=== PATIENT | male | born 1985 | race Asian ===

== ENCOUNTER 2017-08-31 10:31 | Emergency (ER) | payer MEDICAID ==
[~2017-08-31] VITALS: Ht 167.6 cm; Wt 71.4 kg
[2017-08-31 10:50] VITALS: BP 147/87
--- NOTE | 2017-08-31 10:50 | NUR ---
32 YO M BIB SELF W/ C/O COUGHING/SPITTING UP BLOOD SINCE 0800 THIS MORNING. PT REPORTS PAIN 5/10 ON THE LEFT SIDE OF HIS NECK/THROAT NEAR LYMPH NODES. NO TENDERNESS OR SWELLING PALPABLE AT THIS TIME. PT REPORTS PAIN "FEELS LIKE SOMETHING IS TORN". REPORTS HE HAS SOME CHEST PAIN THAT IS ALSO 5/10 WHEN HE COUGHS THAT HAS BEEN GOING ON FOR 2 WEEKS. REPORTS AT 0800 HE COUGHED UP "LARGE, MAROON BLOOD BLOBS". PT A&O X 4. GCS 15. CMS INTACT. PT SKIN COLOR WNL. PT DENIES N/V OR TRAUMA TO THE AREA. PT DENIES LIGHT HEADEDNESS/DIZZINESS AT THIS TIME. RESPIRATIONS EVEN AND UNLABORED. LUNG SOUNDS BILATERALLY CLEAR AT THIS TIME. ER MD SECHRIST NOTIFIED OF PT STATUS. PT NEEDS MET AT THIS TIME. WILL CONTINUE TO MONITOR.
--- NOTE | 2017-08-31 10:56 | NUR ---
PT AMBULATES TO CHAIR E
--- NOTE | 2017-08-31 12:24 | NUR ---
LAB BY BEDSIDE
[2017-08-31 12:47] LABS: BASOPHILS % (AUTO) 0.5 % (0.0-2.0); EOSINOPHILS % (AUTO) 0.5 % (0.0-4.0); HEMATOCRIT 45.9 % (36-52); HEMOGLOBIN 15.2 g/dL (12.0-18.0); LYMPHOCYTES # (AUTO) 1.9 K/uL (2.0-11.5); LYMPHOCYTES % (AUTO) 29.6 % (20.5-51.1); MEAN CORPUSCULAR HEMOGLOBIN 27 pg (27-31); MEAN CORPUSCULAR HGB CONC 33 g/dL (33-37); MONOCYTES # (AUTO) 0.6 K/uL (0.8-1.0); NEUTROPHILS # (AUTO) 3.8 K/uL (1.8-7.7); NEUTROPHILS % (AUTO) 60.4 % (42.2-75.2); PLATELET COUNT (AUTO) 271 K/uL (140-450); RED BLOOD CELL COUNT(AUTO) 5.66 MIL/uL (4.20-6.10); RED CELL DISTRIBUTION WIDTH 13.2 % (11.6-13.7); WHITE BLOOD COUNT (AUTO) 6.3 K/uL (4.8-10.8)
[2017-08-31 12:56] LABS: PROTHROMBIN TIME 9.6 secs (10.8-13.4)
[2017-08-31 13:29] LABS: ALBUMIN 4.4 g/dL (3.4-5.0); ANION GAP 15.3 (8-16); CARBON DIOXIDE 27.9 mmol/L (21-32); CREATININE 0.9 mg/dL (0.7-1.3); POTASSIUM 4.2 mmol/L (3.5-5.1); TOTAL BILIRUBIN 0.4 mg/dL (0.0-1.0)
[2017-08-31 15:10] VITALS: BP 140/75
--- NOTE | 2017-08-31 15:10 | NUR ---
Patient discharged with v/s stable. Written and verbal after care instructions given and explained. Patient alert, oriented and verbalized understanding of instructions. Ambulatory with steady gait. All questions addressed prior to discharge. ID band removed. Patient advised to follow up with PMD. Rx of PROTONIX 40MG given. Patient educated on indication of medication including possible reaction and side effects. Opportunity to ask questions provided and answered.
== END 2017-08-31 15:10 | disposition home or self-care (01) ==
LOC: MED 10:31
DX: R11.10 Vomiting, unspecified (principal); R10.9 Unspecified abdominal pain; R07.9 Chest pain, unspecified; E11.9 Type 2 diabetes mellitus without complications; K21.9 Gastro-esophageal reflux disease without esophagitis; I10 Essential (primary) hypertension
CPT/HCPCS: 36415; 71046; 80053; 85025; 85610; 86886; 86900; 86901; 99285

== ENCOUNTER 2018-01-06 23:29 | Emergency (ER) | payer MEDICAID ==
[~2018-01-06] VITALS: Ht 167.6 cm; Wt 74.4 kg
[2018-01-06 23:30] VITALS: BP 152/84
--- NOTE | 2018-01-06 23:35 | NUR ---
PT ASSISTED BACK TO LOBBY
--- NOTE | 2018-01-07 00:20 | NUR ---
PATIENT PRESENTS TO ED WITH BLOOD IN STOOL X2 DAYS. PATIENT STATES EVERY TIME HE GOES TO THE BATHROOM AND HAS A BOWEL MOVEMENT BRIGHT RED BLOOD COMES OUT. PATIENT DENIES ANY PAIN AT THIS TIME. PATIENT DENIES N/V/D. ER MD MADE AWARE OF PATIENT STATUS. WILL CONTINUE TO MONITOR.
--- NOTE | 2018-01-07 00:30 | NUR ---
Dr. aLdd evaluating patient at bedside.
--- NOTE | 2018-01-07 01:05 | NUR ---
PT TAKEN TO CT
[2018-01-07 02:10] VITALS: BP 148/82
--- NOTE | 2018-01-07 02:10 | NUR ---
Patient discharged with v/s stable. Written and verbal after care instructions given and explained. Patient alert, oriented and verbalized understanding of instructions. Ambulatory with steady gait. All questions addressed prior to discharge. ID band removed. Patient advised to follow up with PMD. Rx of LACTULOSE given. Patient educated on indication of medication including possible reaction and side effects. Opportunity to ask questions provided and answered.
== END 2018-01-07 02:10 | disposition home or self-care (01) ==
LOC: MED 23:29
DX: K62.5 Hemorrhage of anus and rectum (principal); K59.00 Constipation, unspecified; I10 Essential (primary) hypertension; E11.9 Type 2 diabetes mellitus without complications; K21.9 Gastro-esophageal reflux disease without esophagitis
CPT/HCPCS: 99284

== ENCOUNTER 2019-03-31 15:11 | Emergency (ER) | payer MEDICAID ==
[~2019-03-31] VITALS: Ht 170.2 cm; Wt 67.6 kg
[2019-03-31 15:16] VITALS: BP 151/98
--- NOTE | 2019-03-31 15:29 | NUR ---
PT TAKEN TO BED 8.
--- NOTE | 2019-03-31 15:43 | NUR ---
34 Y/O M PRESENTS TO ER C/O HEADACHES FOR THE LAST COUPLE WEEKS. C/O SHORTNESS OF BREATHE X 1 WEEK. PER PT "SOMETIMES I FEEL LIKE I'M GOING TO PASS OUT BECAUSE I CAN'T CATCH MY BREATH. SOMETIMES AT WORK I BLACK OUT." PT STATES "I DO NOT FALL DURING "BLACKOUTS" BUT MY COWORKERS NOTICE SOMETHING IS WRONG." PT DENIES ANY PAIN AT THIS TIME. PAIN LEVEL 0/10. PT DENIES HAVING A HEADACHE AND DIZZYNESS AT THIS TIME. RESIRPATIONS ARE EVEN AND UNLABORED. O2 SATURATION 98% ON RA. HOB ELEVATED, BED IN LOWEST POSITION, BEDRAIL UP X1. WAITING FOR ERMD TO EVALUATE PT. ALLERGIES: NKA MED HX: DM, HTN, GERD
--- NOTE | 2019-03-31 17:24 | NUR ---
XRAY AT BEDSIDE
[2019-03-31] MEDS ORDERED: ASPIRIN 81 MG TAB.CHEW PO ONE (17:25)
[2019-03-31 17:41] LABS: BASOPHILS % (AUTO) 0.7 % (0.0-2.0); EOSINOPHILS % (AUTO) 0.8 % (0.0-4.0); HEMATOCRIT 46.1 % (36-52); HEMOGLOBIN 15.1 g/dL (12.0-18.0); LYMPHOCYTES # (AUTO) 1.7 K/uL (2.0-11.5); LYMPHOCYTES % (AUTO) 28.9 % (20.5-51.1); MEAN CORPUSCULAR HEMOGLOBIN 27 pg (27-31); MEAN CORPUSCULAR HGB CONC 33 g/dL (33-37); MEAN CORPUSCULAR VOLUME 82.3 fL (80-94); MONOCYTES # (AUTO) 0.5 K/uL (0.8-1.0); NEUTROPHILS # (AUTO) 3.6 K/uL (1.8-7.7); NEUTROPHILS % (AUTO) 61.6 % (42.2-75.2); PLATELET COUNT (AUTO) 312 K/uL (140-450); RED BLOOD CELL COUNT(AUTO) 5.61 MIL/uL (4.20-6.10); RED CELL DISTRIBUTION WIDTH 13.6 % (11.6-13.7); WHITE BLOOD COUNT (AUTO) 5.9 K/uL (4.8-10.8)
--- NOTE | 2019-03-31 17:45 | NUR ---
PT AWAKE. VSS. WILL CONTINUE TO MONITOR.
[2019-03-31 17:52] LABS: ANION GAP 14.5 (8-16); CARBON DIOXIDE 26.9 mmol/L (21-32); CREATININE 0.9 mg/dL (0.7-1.3); POTASSIUM 4.4 mmol/L (3.5-5.1)
--- NOTE | 2019-03-31 19:14 | NUR ---
TRANSFER OF CARE REPORT GIVEN TO ESTEVAN NICHOLSON
[2019-03-31 20:08] VITALS: BP 140/90
--- NOTE | 2019-03-31 20:08 | NUR ---
Patient discharged with v/s stable. Written and verbal after care instructions given and explained. Patient verbalized understanding. Ambulatory with steady gait. All questions addressed prior to discharge. Advised to follow up with PMD.
== END 2019-03-31 20:08 | disposition home or self-care (01) ==
LOC: MED 15:11
DX: R07.89 Other chest pain (principal); E11.9 Type 2 diabetes mellitus without complications; K21.9 Gastro-esophageal reflux disease without esophagitis; I10 Essential (primary) hypertension
CPT/HCPCS: 36415; 71045; 80048; 82948; 84484; 85025; 93005; 99284; Q0092

== ENCOUNTER 2019-07-15 17:52 | Emergency (ER) | payer MEDICAID ==
[~2019-07-15] VITALS: Ht 167.6 cm; Wt 72.1 kg
[2019-07-15 18:31] VITALS: BP 139/93
--- NOTE | 2019-07-15 18:38 | NUR ---
FLU/STREP SWAB COLLECTED AND HANDED TO SIZE CUTTER
--- NOTE | 2019-07-15 19:33 | NUR ---
PT AMBULATED TO BED 08
--- NOTE | 2019-07-15 19:35 | NUR ---
PT 34 Y/O MALE BIB SELF FOR C/O COUGH X 3 DAYS. THROAT PAIN 9/10 PROVOKED BY COUGH. AFEBRILE. RESPIRATIONS ARE EVEN AND UNLABORED. LUNG SOUNDS CLEAR A/P BILAT. NON PRODUCTIVE COUGH PRESENT. PT DENIES N/V/D. PT ABD IS SOFT, ROUND, AND NON TENDER. VSS. PT RESTING UPRIGHT IN BED EYES OPEN. AAO X4. ABLE TO MAKE NEEDS KNOWN. PT STATES HE IS COMPLIANT WITH DIABETIC MEDICAITON- TAKING METFORMAIN AT HOME BUT DOES NOT KNOW AMOUNT. MEDHX: DM TYPE II, HTN ALERGIES: NKA
--- NOTE | 2019-07-15 19:48 | NUR ---
DR. MALHOTRA AT BEDSIDE.
[2019-07-15] MEDS ORDERED: KETOROLAC 30 MG/ML VIAL IM ONE (19:50)
[2019-07-15 20:15] VITALS: BP 132/98
--- NOTE | 2019-07-15 20:15 | NUR ---
Patient discharged with v/s stable. Written and verbal after care instructions given and explained. Patient alert, oriented and verbalized understanding of instructions. Ambulatory with steady gait. All questions addressed prior to discharge. ID band removed. Patient advised to follow up with PMD. Rx of NAPROSYN, TAMIFLU, GUAIFENESIN given. Patient educated on indication of medication including possible reaction and side effects. Opportunity to ask questions provided and answered.
== END 2019-07-15 20:15 | disposition home or self-care (01) ==
LOC: MED 17:52
DX: J11.1 Influenza due to unidentified influenza virus with other respiratory manifestations (principal); B34.9 Viral infection, unspecified; I10 Essential (primary) hypertension; E11.9 Type 2 diabetes mellitus without complications; K21.9 Gastro-esophageal reflux disease without esophagitis
CPT/HCPCS: 87081; 87804; 96372; 99283; J1885

== ENCOUNTER 2020-03-03 11:54 | Emergency (ER) | payer MEDICAID ==
[~2020-03-03] VITALS: Ht 170.2 cm; Wt 64.6 kg
[2020-03-03 12:03] VITALS: BP 158/76
[2020-03-03] MEDS ORDERED: KETOROLAC 30 MG/ML VIAL IM ONE (12:55)
[2020-03-03 13:57] VITALS: BP 145/71
== END 2020-03-03 13:57 | disposition home or self-care (01) ==
LOC: MED 11:54
DX: M54.5 Low back pain (principal); E11.9 Type 2 diabetes mellitus without complications; I10 Essential (primary) hypertension; K21.9 Gastro-esophageal reflux disease without esophagitis
CPT/HCPCS: 72100; 96372; 99283; J1885

== ENCOUNTER 2020-05-21 19:05 | Emergency (ER) | payer MEDICAID ==
[~2020-05-21] VITALS: Ht 167.6 cm; Wt 68.0 kg
[2020-05-21 19:43] VITALS: BP 167/89
[2020-05-21] MEDS ORDERED: IBUPROFEN 800 MG TAB PO ONE (20:35)
--- NOTE | 2020-05-21 20:50 | NUR ---
PATIENT PRESENTS TO ED WITH RIGHT CLAVICLE PAIN . PT STATES THAT IT SARTED TODAY BEFORE WORK. DENIES ANY TRAUMA TO THE AREA. DENIES N/V/D; SKIN IS PINK/WARM/DRY; AAOX4 WITH EVEN AND STEADY GAIT; LUNGS CLEAR BL; HR EVEN AND REGULAR; PT DENIES ANY FEVER, CP, SOB, OR COUGH AT THIS TIME; PATIENT STATES PAIN OF 8/10 AT THIS TIME, ONLY WHEN HE LIFTS HIS ARM; VSS; PT IN LOBBY AT THIS TIME
[2020-05-21 22:15] VITALS: BP 167/89
--- NOTE | 2020-05-21 22:16 | NUR ---
Patient discharged with v/s stable. Written and verbal after care instructions given and explained. Patient alert, oriented and verbalized understanding of instructions. Ambulatory with steady gait. All questions addressed prior to discharge. ID band removed. Patient advised to follow up with PMD. Rx of IBUPROFEN AND KEFLEX given. Patient educated on indication of medication including possible reaction and side effects. Opportunity to ask questions provided and answered.
== END 2020-05-21 22:15 | disposition home or self-care (01) ==
LOC: MED 19:05
DX: M25.511 Pain in right shoulder (principal)
CPT/HCPCS: 73000; 73030; 99284